=== PATIENT | female | born 1950 | race Caucasian/White ===

== ENCOUNTER 2022-12-29 23:26 | Emergency (ER) | payer MEDICARE, OTHER ==
[~2022-12-29] VITALS: Ht 157.5 cm; Wt 68.0 kg
[2022-12-30 00:18] LABS: *BILIRUBIN,URIN NEGATIVE (NEGATIVE); *CLARITY,URINE CLEAR (CLEAR); *KETONES,URINE NEGATIVE (NEGATIVE); *PROTEIN,URINE TRACE (NEGATIVE); *UROBILINOGEN,URINE 0.2 E.U./dl (NORMAL); LEUKOCYTE ESTERASE ,URINE 1+ (NEGATIVE); NITRITE, URINE NEGATIVE (NEGATIVE); UGLUCOSE NEGATIVE (NEGATIVE)
[2022-12-30 00:19] LABS: *COLOR,URINE LIGHT YELLOW (YELLOW)
[2022-12-30 01:00] LABS: *BLOOD, URINE 2+ (NEGATIVE)
[2022-12-30 01:05] LABS: BACTERIA,URINE FEW /HPF (NONE SEEN); SQUAMOUS EPITHELIAL CELL,UR FEW /HPF (NONE SEEN)
[2022-12-30 02:54] VITALS: BP 136/78; TEMP 97.5; O2SAT 100
== END 2022-12-30 02:55 | disposition home or self-care (01) ==
LOC: ER 23:30
DX: R33.9 Retention of urine, unspecified (principal); Z90.49 Acquired absence of other specified parts of digestive tract
CPT/HCPCS: 51702; A4606; A4663